=== PATIENT | female | born 1950 | race Caucasian/White ===

== ENCOUNTER → 2018-04-15 | Outpatient (CLI) | payer OTHER ==
[~2018-04-15] MED LIST: ATIVAN0.5 MG PO; ATORVASTATIN CA10 MG PO; B-1100 MG PO; FOLIC ACID1 MG PO; HYDROCHLOROTHIA25 M1 PO; KEPPRA 500 MG500 M1 PO; LOPRESSOR100 M1 PO; NORCO 5-325 TA1 EACH PO; POTASSIUM20 PO; PREVACID30 MG; PROTONIX40 M1 PO; TOPROL XL100 MG PO
== END ==
LOC: ULTRA 09:32
DX: K76.0 Fatty (change of) liver, not elsewhere classified (principal); Z87.898 Personal history of other specified conditions

== ENCOUNTER → 2018-06-11 | Outpatient (CLI) | payer OTHER | LOC: CAT 10:58 | DX: K86.2 Cyst of pancreas (principal); K86.89 Other specified diseases of pancreas; R19.7 Diarrhea, unspecified; R63.4 Abnormal weight loss; R19.4 Change in bowel habit ==

== ENCOUNTER 2018-06-21 16:06 | Emergency (ER) | payer OTHER ==
[~2018-06-21] VITALS: Ht 160 cm; Wt 45.4 kg
[2018-06-21 16:22] LABS: ABSOLUTE NEUTROPHILS 7.5 thou/uL (1.4-8.2); BASOPHILS 0.4 % (0.0-2.0); HEMATOCRIT 38.1 % (37.0-47.0); HEMOGLOBIN 12.6 gm/dL (12.0-15.0); LYMPHOCYTES 11.4 % (24.0-44.0); MCH 31.5 pg (26.0-34.0); MCHC 33.1 g/dL (28.0-37.0); MCV 94.9 fL (80.0-100.0); MONOCYTES 2.2 % (1.0-8.0); PLATELET COUNT 149 thou/uL (150-400); RBC 4.01 mil/uL (4.20-5.00); RDW 12.7 % (10.5-14.5); WBC 8.7 thou/uL (4.0-11.0)
[2018-06-21 16:33] LABS: CALCIUM 8.6 mg/dL (8.5-10.1); CREATININE 0.9 mg/dL (0.6-1.0); POTASSIUM 4.1 mmol/L (3.5-5.1)
[2018-06-21 16:36] LABS: URINE BLOOD NEGATIVE (Negative); URINE CLARITY CLEAR; URINE COLOR YELLOW; URINE GLUCOSE-RANDOM* NEGATIVE (Negative); URINE KETONES 3+ (Negative); URINE LEUKOCYTES TRACE (Negative); URINE NITRITE NEGATIVE (Negative); URINE PROTEIN (DIPSTICK) 1+ (Negative); URINE SPECIFIC GRAVITY >= 1.030 (1.005-1.035); URINE UROBILINOGEN 0.2 E.U./dl (0.2-1.0)
[2018-06-21 16:37] LABS: ICTOTEST (BILI CONFIRMATORY) Negative (Negative); URINE BILIRUBIN NEGATIVE (Negative)
[2018-06-21 16:39] LABS: ALBUMIN 3.6 g/dL (3.4-5.0); TOTAL BILIRUBIN 0.6 mg/dL (<0.1-1.0); TOTAL PROTEIN 6.4 g/dL (6.4-8.2)
[2018-06-21 16:41] LABS: URINE REDUCING SUBSTANCE NEGATIVE
[2018-06-21 16:44] LABS: BACTERIA 1-9 Few /HPF (None Seen); CASTS None Seen /LPF (None Seen); CRYSTALS None Seen /LPF (None Seen); SQUAMOUS 0-3 Few /LPF (0-3); URINE WBC 0-5 Rare /HPF (0-5)
[2018-06-21 16:45] LABS: URINE RBC None Seen /HPF (0-2)
[2018-06-21 17:03] LABS: AMP/METHAMP Negative (Negative); BARBITURATES Negative (Negative); BENZODIAZEPINES Negative (Negative); COCAINE Negative (Negative); METHADONE Negative (Negative); OPIATES Negative (Negative); PCP Negative (Negative)
[2018-06-21 17:12] LABS: PROTIME 10.9 Seconds (9.3-11.4)
[2018-06-21 17:21] LABS: MAGNESIUM 1.3 mg/dL (1.8-2.4); SALICYLATE 6.6 mg/dL (2.8-20.0); TROPONIN-I <0.06 ng/mL (<0.06)
[2018-06-21 18:33] VITALS: BP 147/69
--- NOTE | 2018-06-22 08:00 | EKG ---
[place] [address] [facility] [employer] [place] [address] ELECTROCARDIOGRAM REPORT Name: VISH MOYA Room #: [facility]P [id number] ������������������ Admission: 06/21/18 ������������������ Attend Phys: Discharge: 06/21/18 ������������������ Date of : 52 Report #: [id number] ����������������������������������������������������������������� [id number] THIS REPORT FOR: //name// [facility] ED Test Date: 2018-06-21 Test Time: 17:00:05 Pat Name: VISH MOYA Department: Room: Gender: F Yarn Winder: MANDY : 1950 Requested By: Rudy Mccollum Order Number: [id number] MD: Armando Hatch Measurements Intervals [place] Rate: 72 P: 72 CA: 187 QRS: -86 QRSD: 99 T: 80 QT: 455 QTc: 499 Interpretive Statements Sinus rhythm Left anterior fascicular block Abnormal R-wave progression, late transition Compared to ECG 06/28/2015 13:43:19 Left anterior fascicular block now present no significant change was found Electronically Signed On 06-22-2018 7:59:51 CDT by Armando Hatch [email or web address] ��������������������������������������������� <ELECTRONICALLY SIGNED> ���������������������������������������� By: Armando Hatch MD, [facility] ��������������������������������������������� 06/22/18 0759 1700 1700 Armando Hatch MD, [facility] /EPI
== END 2018-06-21 18:44 | disposition short-term general hospital (02) ==
LOC: ER 16:06
PROVIDERS: Emergency Medicine
DX: S06.5X0A Traumatic subdural hemorrhage without loss of consciousness, initial encounter (principal); K92.2 Gastrointestinal hemorrhage, unspecified; F10.129 Alcohol abuse with intoxication, unspecified; E87.2 Acidosis; E83.42 Hypomagnesemia; K92.0 Hematemesis; E16.2 Hypoglycemia, unspecified; I10 Essential (primary) hypertension; Z88.0 Allergy status to penicillin; Z88.2 Allergy status to sulfonamides; Z90.49 Acquired absence of other specified parts of digestive tract; W18.39XA Other fall on same level, initial encounter; Y92.000 Kitchen of unspecified non-institutional (private) residence as the place of occurrence of the external cause; Y93.89 Activity, other specified; Y99.8 Other external cause status; Y90.0 Blood alcohol level of less than 20 mg/100 ml

== ENCOUNTER 2019-03-28 10:48 | Inpatient (IN) | payer OTHER ==
[~2019-03-28] VITALS: Ht 162.6 cm; Wt 47.6 kg
[2019-03-28 10:50] VITALS: BP 95/48
[2019-03-28 11:28] LABS: ABSOLUTE NEUTROPHILS 3.2 thou/uL (1.4-8.2); BASOPHILS 0.4 % (0.0-2.0); EOSINOPHILS 1.2 % (0.0-3.0); HEMATOCRIT 43.3 % (37.0-47.0); LYMPHOCYTES 43.7 % (24.0-44.0); MCH 30.5 pg (26.0-34.0); MCHC 32.3 g/dL (28.0-37.0); MCV 94.5 fL (80.0-100.0); MONOCYTES 6.9 % (1.0-8.0); POLYS 47.8 % (36.0-66.0); RBC 4.58 mil/uL (4.20-5.00); WBC 6.6 thou/uL (4.0-11.0)
[2019-03-28 11:42] LABS: ALBUMIN 3.3 g/dL (3.4-5.0); BUN 9 mg/dL (7-18); CALCIUM 8.4 mg/dL (8.5-10.1); CO2 24 mmol/L (21-32); CREATININE 1.1 mg/dL (0.6-1.0); GLUCOSE 102 mg/dL (74-106); SGOT 58 U/L (15-37); SGPT 36 U/L (30-65); TOTAL BILIRUBIN 0.5 mg/dL (<0.1-1.0); TOTAL PROTEIN 6.1 g/dL (6.4-8.2); TROPONIN-I <0.06 ng/mL (<0.06)
[2019-03-28 11:50] LABS: PLATELET COUNT 99 thou/uL (150-400); PLATELET ESTIMATE SLIGHTLY DECREASED
[2019-03-28 11:53] LABS: ANION GAP 15 mmol/L (7-16); CHLORIDE 93 mmol/L (98-107); SODIUM 132 mmol/L (136-145)
[2019-03-28 11:54] LABS: POTASSIUM 2.8 mmol/L (3.5-5.1)
[2019-03-28 12:07] LABS: URINE BILIRUBIN NEGATIVE (Negative); URINE BLOOD NEGATIVE (Negative); URINE CLARITY CLEAR; URINE COLOR YELLOW; URINE GLUCOSE-RANDOM* NEGATIVE (Negative); URINE KETONES TRACE (Negative); URINE NITRITE-REFLEX NEGATIVE (Negative); URINE PROTEIN (DIPSTICK) TRACE (Negative); URINE UROBILINOGEN 0.2 E.U./dl (0.2-1.0)
[2019-03-28 12:20] LABS: URINE LEUKOCYTES-REFLEX 1+ (Negative)
[2019-03-28 12:22] LABS: BACTERIA-REFLEX 1-9 Few /HPF (None Seen); CASTS None Seen /LPF (None Seen); CRYSTALS None Seen /LPF (None Seen); SQUAMOUS None Seen /LPF (0-3); URINE RBC None Seen /HPF (0-2); URINE WBC-REFLEX 0-5 Rare /HPF (0-5)
[2019-03-28] MEDS ORDERED: DRIZALMA SPRINK60 MG PO (12:48)
[2019-03-28] MEDS ORDERED: BUTALBIT-ACETA1 EACH PO (12:49)
[2019-03-28] MEDS ORDERED: ZALEPLON 10 MG10 M1 PO (12:49)
[2019-03-28] MEDS ORDERED: NEURONTIN800 MG PO (12:50)
[2019-03-28] MEDS ORDERED: TROKENDI XR200 MG PO (12:51)
[2019-03-28 13:25] VITALS: BP 125/70
--- NOTE | 2019-03-28 13:47 | NUR ---
FAMILY LEFT NOTE WITH PHONE NUMBERS. BROTHER-WU [phone] SISTER IDALIA [phone]
[2019-03-28 14:17] VITALS: BP 98/54
[2019-03-28 14:20] VITALS: BP 121/62; BP 98/54
[2019-03-28 14:31] LABS: TSH 3.624 uIU/mL (0.358-3.740)
--- NOTE | 2019-03-28 14:36 | NUR ---
RN ON 2N UNABLE TO RECEIVE REPORT AT THIS TIME- GIVING BLOOD IN ANOTHER ROOM
[2019-03-28 15:05] LABS: FOLIC ACID 33.4 ng/mL (8.6-58.9)
--- NOTE | 2019-03-28 15:40 | NUR ---
PT ORIENTED TO ROOM AND UNIT. BED LOW ABD LOCKED, SIDE RAILS UPX4 AND PADDED IN CASE OF WITHDRAWAL SEIZURE. TELE APPLIED, CALL LIGHT IN REACH. WILL CONTINUE TO ASSESS.
[2019-03-28 20:37] VITALS: BP 122/55
--- NOTE | 2019-03-29 04:52 | NUR ---
A/O X 4.UP WITH ONE ASSIST TO THE BATHROOM.BM X 1.NO SIGNS OF WITHDRAWAL NOTED.IV FLUIDS INFUSING.MONITOR SHOWS SR.POC CONTINUED.
[2019-03-29 04:55] LABS: ABSOLUTE NEUTROPHILS 3.8 thou/uL (1.4-8.2); BASOPHILS 0.3 % (0.0-2.0); EOSINOPHILS 1.1 % (0.0-3.0); HEMATOCRIT 37.2 % (37.0-47.0); HEMOGLOBIN 12.2 gm/dL (12.0-15.0); LYMPHOCYTES 33.9 % (24.0-44.0); MCH 30.3 pg (26.0-34.0); MCHC 32.7 g/dL (28.0-37.0); MCV 92.8 fL (80.0-100.0); MONOCYTES 5.1 % (1.0-8.0); PLATELET COUNT 67 thou/uL (150-400); POLYS 59.6 % (36.0-66.0); RBC 4.01 mil/uL (4.20-5.00); RDW 13.6 % (10.5-14.5); WBC 6.3 thou/uL (4.0-11.0)
[2019-03-29 05:03] VITALS: BP 147/67
[2019-03-29 05:09] LABS: CALCIUM 7.8 mg/dL (8.5-10.1); MAGNESIUM 1.5 mg/dL (1.8-2.4); POTASSIUM 4.2 mmol/L (3.5-5.1)
[2019-03-29 08:24] VITALS: BP 145/77
[2019-03-29 09:48] VITALS: BP 145/77
[2019-03-29 13:01] VITALS: BP 121/63
--- NOTE | 2019-03-29 13:17 | NUR ---
Consult received for malnutrition. RD defers dx to physician. Admit for ETOH intoxication. Recent wt change of 2-13 lbs in past 3 months per nsg. Spoke with pt and she denies any recent wt loss. Also Hx of poor appetite, N/V, anorexia. Now reports good appetite and is "not picky" with food. On regular diet. Ate 90% of lunch. Updated preferences to exclude waffles and pancakes, substitute biscuits and gravy. Hx of ETOH abuse, HTN, HLD, tobacco use, ICH, peripheral neuropathy. Receiving and thiamine vitamins, IV fluids. No visible wasting. Pt refusing oral supplements at this time. Considr to be low nutrtion risk.
--- NOTE | 2019-03-29 15:31 | NUR ---
patient admits with AMS and ETOH abuse. 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 She reports all needs nearby her were she lives. She resides in independent apt on second floor with elevator. PCP Dr Radha Hernadez, Discussed ETOH and neuropathy. Patient not interested in resources. 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 Therapy in process of evals. Casemgt following.
[2019-03-29 17:48] VITALS: BP 120/69
--- NOTE | 2019-03-29 18:16 | NUR ---
ASSUMED CARE PT SHIFT CHANGE. ASSESSMENTS CHARTED. MEDS GIVEN PER APR. PT ALERT AND ORIENTED. VSS. C/O HEADACHE DENYING NEEDS FOR MEDS--WILL CONT TO ASSESS PAIN. O2 SATS WNL ON ROOM AIR. PT UP WITH PT/OT TOLERATING WELL. FALL RISK PRECAUTIONS IN PLACE. THROUGHOUT SHIFT. PLAN IS FOR PT TO DC HOME TOMORROW. DENYING OF NEEDS AT THIS TIME. WILL CONT TO MONITOR AND FOLLOW POC.
[2019-03-29 20:16] VITALS: BP 134/76
--- NOTE | 2019-03-30 03:19 | NUR ---
ASSESSMENT: PT REMAIN ALERT AND ORIENT TIMES FOUR. UP TO BR WITH WALKER AND SBA. C/O BACK AND KNEE PAIN. TYLENOL GIVEN WITH PARTIAL RESULTS. VSS, AFEBRILE. CIWA SCORE = 1. POSSIBLE DC TO HOME TODAY. SLOW PROGRESS, WILL CONTINUE TO MONITOR,
[2019-03-30 04:32] VITALS: BP 153/86
[2019-03-30 08:24] VITALS: BP 146/81
[2019-03-30] MEDS ORDERED: KEFLEX500 M1 PO (08:39)
[2019-03-30 10:33] VITALS: BP 146/81
--- NOTE | 2019-03-30 11:25 | NUR ---
ASSESSMENT CHARTED. PT ALERT AND ORIENTED. VSS. DENIED HAVING PAIN OR DISCOMFORT. REPORT FEELING BETTER TODAY. SEEN BY DR. JUÁREZ. ORDERS GIVEN TO DISCHARGE PT TO HOME. DISCHARGE INSTRUCTIONS GIVEN TO PT. PT VERBERLISED UNDERSTANDING.
--- NOTE | 2019-04-06 12:31 | EKG ---
[facility] [place] [address] ELECTROCARDIOGRAM REPORT Name: VISH MOYA Room #: 203-P DIS IN M.R.#: [id number] Admission: 03/28/19 Attend Phys: Rk Belcher MD Discharge: 03/30/19 Date of : 52 Report #: [id number] THIS REPORT FOR: cc: Vish Hernadez DNP, Mary E. DNP Lundgren, Craig H. 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 : 1950 Requested By: Xochilt Lee Order Number: [id number] MD: Armando Hatch Measurements Intervals [place] Rate: 67 P: 7 WI: 183 QRS: -85 QRSD: 98 T: 38 QT: 466 QTc: 492 Interpretive Statements Sinus rhythm Abnormal R-wave progression, early transition Inferior infarct, old Compared to ECG 06/21/2018 17:00:05 no significant change was found Electronically Signed On 03-29-2019 9:17:15 [employer]ET BUILDER by Armando Hatch [email or web address] <ELECTRONICALLY SIGNED> By: Armando Hatch MD, [facility] 03/29/19 0917 1133 1133 Armando Hatch MD, [facility] /EPI
== END 2019-03-30 11:45 | disposition home or self-care (01) | DRG 896 ==
LOC: ER 10:48 → EROBS 12:31 → 2N 12:31 → ENTRNSPT 03-30 11:25 → EDTRNSPTSTS 03-30 11:37 → 2N 03-30 11:45
PROVIDERS: Nurse Practitioner; Nurse Practitioner Family; ADMIT Hospitalist
DX: F10.239 Alcohol dependence with withdrawal, unspecified (principal); G92 Toxic encephalopathy; N39.0 Urinary tract infection, site not specified; E87.1 Hypo-osmolality and hyponatremia; E46 Unspecified protein-calorie malnutrition; F33.1 Major depressive disorder, recurrent, moderate; Z68.1 Body mass index [BMI] 19.9 or less, adult; Z79.899 Other long term (current) drug therapy; I10 Essential (primary) hypertension; E87.6 Hypokalemia; E78.5 Hyperlipidemia, unspecified; G62.9 Polyneuropathy, unspecified; D69.6 Thrombocytopenia, unspecified; Z60.2 Problems related to living alone; F10.20 Alcohol dependence, uncomplicated; N19 Unspecified kidney failure; Z90.49 Acquired absence of other specified parts of digestive tract; Z88.0 Allergy status to penicillin; Z88.2 Allergy status to sulfonamides
CPT/HCPCS: 10081

== ENCOUNTER → 2019-12-09 | Outpatient (CLI) | payer OTHER ==
[~2019-12-09] MED LIST changes: +BUTALBIT-ACETA1 EACH PO; +DRIZALMA SPRINK60 MG PO; +KEFLEX500 M1 PO; +NEURONTIN800 MG PO; +TROKENDI XR200 MG PO; +ZALEPLON 10 MG10 M1 PO
== END ==
LOC: CAT 13:55
PROVIDERS: ATTEND Nurse Practitioner
DX: I65.23 Occlusion and stenosis of bilateral carotid arteries (principal); I69.359 Hemiplegia and hemiparesis following cerebral infarction affecting unspecified side; I61.6 Nontraumatic intracerebral hemorrhage, multiple localized; G93.89 Other specified disorders of brain

== ENCOUNTER → 2019-12-26 | Outpatient (CLI) | payer OTHER | LOC: LAB 07:40 | PROVIDERS: ATTEND Nurse Practitioner | DX: Z20.828 Contact with and (suspected) exposure to other viral communicable diseases (principal) ==

== ENCOUNTER → 2020-01-30 | Outpatient (CLI) | payer OTHER | LOC: LAB 11:46 | PROVIDERS: ATTEND Nurse Practitioner | DX: Z20.828 Contact with and (suspected) exposure to other viral communicable diseases (principal) ==